=== PATIENT | female | born 1930 | race Caucasian/White ===

== ENCOUNTER 2016-12-20 09:51 | Observation (INO) | payer MEDICARE, OTHER ==
[~2016-12-20] VITALS: Ht 160 cm; Wt 64.0 kg
[~2016-12-20 09:51] MED LIST: AMLO-39 PO; ASPI81TA3 PO; ATEN50TA PO; ATOR20TA65 PO; ESTR42.52 VG; OMEP40CA36 PO; RANI150T11 PO
[2016-12-20] MEDS ORDERED: HYDROmorphone 0.5 mg/0.5 mL iSecure Syringe IVPUSH ONE (10:20)
[2016-12-20 10:21] VITALS: BP 183/69; PULSE 78; RESP 17; O2SAT 100
[2016-12-20] MEDS ORDERED: 0.9% Sodium Chloride 1,000 ML IV ONE (10:53)
[2016-12-20] MEDS ORDERED: Ondansetron 2 mg/mL 2 mL Inj IVPUSH ONE (10:55)
--- NOTE | 2016-12-20 11:01 | ED.REPORT ---
HPI-Headache Date of Service Dec 20, 2016 ED Provider: Jag Gavin MD The patient is an 86 year old female with a medical history including hypertension, migraines, CVA, and GERD who presents to the ED via EMS with a headache onset last night, worsening this morning. Associated symptoms include nausea, vomiting, and transient left arm numbness. The patient took ASA at onset , with no relief. Her symptoms are similar to previous migraines. She denies focal weakness or other symptoms. EMS found the patient with a heart rate of 98 and a BP of 192/90. She was given Zofran 4mg en route. The patient presents awake and oriented but she is a poor historian and only intermittently answers questions; unclear exact time of onset 2/ patient story changing while talking to her. The most recent time of onset was at 3am, though at other times she'll say it started yesterday. Also unclear whether or not sudden or gradual in onset Nursing Notes Stated Complaint: HEADACHE/VOMITING Chief Complaint: Headache Nursing Notes Reviewed: Yes Allergies: Coded Allergies: Penicillins (Verified Allergy, Severe, 12/20/16) enalapril (Verified Allergy, Severe, 12/20/16) DAVID Inhibitors (Verified Allergy, Unknown, 12/20/16) Scheduled Amlodipine (Norvasc) 5 Mg Tablet 10 MG PO DAILY Aspirin Chew (Aspirin Chew) 81 Mg Tablet 324 MG PO DAILY Atenolol (Atenolol) 50 Mg Tablet 50 MG PO DAILY Atorvastatin Calcium (Atorvastatin Calcium) 40 Mg Tablet 40 MG PO DAILY Chlorthalidone (Chlorthalidone) 25 Mg Tablet 12.5 MG PO DAILY Cholecalciferol (Vitamin D3) (Vitamin D3) 5,000 Unit Capsule 5,000 UNIT PO DAILY Estradiol (Estrace) 42.5 Gm Cream.appl 1 G VG WEEKLY Magnesium Oxide (Mag-Oxide) 400 Mg Tablet 400 MG PO DAILY Omeprazole (Omeprazole) 20 Mg Capsule.dr 20 MG PO BID Potassium Chloride (Potassium Chloride) 8 Meq Capsule.er 8 MEQ PO DAILY TAKE WITH FOOD General Time Seen by MD: 10:17 Chief Complaint Headache Hx Obtained From: Patient, EMS Unable to Obtain Hx: Patient condition, Mental status Arrived By: Ambulance Onset Occurred: 5 - 8 hours ago Symptom Duration: Since onset Pertinent Negative: Relieved by nothing Related History: Reports: Headache, migraine hx, Hypertension Recent Healthcare: No recent doctor visit Similar Sx Previous: Yes Past Medical History Past Medical History Hypertension. GERD Remote history of treatment with H pylori eradication therapy. 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 Mild acute renal failure. Migrainous headaches. Reports: GERD, Hypertension Past Surgical History None reported Smoking History Never Smoker Social History Alcohol Use: Denies alcohol use Drug Use: Denies drug use Other Social History: Good social support, Lives with children Ambulatory Status Independent Review of Systems Unable to Obtain ROS Patient condition, Mental status Physical Exam Initial Vital Signs Vital Signs (First) Date Time Temp Pulse Resp B/P Pulse Ox O2 Delivery O2 Flow Rate FiO2 12/20/16 10:21 37.5 78 17 183/69 100 Room Air Initial VS: Reviewed ENT: Mucous membranes moist Respiratory: Breath sounds normal, Clear to auscultation, No respiratory distress Cardiovascular: Regular rate & rhythm, Heart sounds normal Abdomen / GI: Soft, Non-tender Skin: Warm, Dry, No cyanosis General/Constitutional: Awake, Alert Slow to answer questions Head / Eyes: Atraumatic, Normocephalic, PERRL (Pupils 3mm bilaterally) Neck: Supple, Full range of motion Neurologic: Oriented X3 Speech: Positive: Slow Focal Weakness: Negative: Lower extremity bilat, Upper extremity bilat Good strength in lower extremities Unable to cooperate fully with neuro exam Abdomen: Soft Interpretation & Diagnostics URINE DIPSTICK: Bedside Urine Specific [place] * 1.000 Bedside Urine pH * 8 Bedside Urine Leukocyte Esterase * Negative Bedside Urine Nitrite * Negative Bedside Urine Protein * Trace Bedside Urine Glucose * 100mg/dl Bedside Urine Ketones * ++ Moderate Bedside Urine Urobilinogen * Normal Bedside Urine Bilirubin * Negative Bedside Urine Occult Blood * Negative Urine to Lab * Yes Lab Results Interpretation Result Diagram: 12/21/16 0530 12/22/16 0650 Test 12/20/16 10:15 12/20/16 12:47 Prothrombin Time 10.2sec (8.1-12.5) Prothromb Time International Ratio 0.95ratio Hemoglobin A1c 6.0% (4.8-5.6) Magnesium Level 1.8mg/dL (1.6-2.6) Troponin T 0.010ug/L (0.0-0.011) Pro-B-Type Natriuretic Peptide 456.8pg/mL (0-738) Triglycerides Level 97mg/dL (0-149) Cholesterol Level 130mg/dL (100-199) LDL Cholesterol, Calculated 57.600mg/dL (0-99) VLDL Cholesterol 19.400mg/dL HDL Cholesterol 53mg/dL (>39) Cholesterol/HDL Ratio 2.45 (0.0-4.4) Salicylates Level 24.2ug/mL (30-250) Acetaminophen Level < 15.0ug/mL Rx (10-25) Urine Color Straw (YELLOW) Urine Appearance Hazy (CLEAR,HAZY) Urine pH 8.0 (5.0-8.0) Urine Specific [place] 1.015 (1.003-1.035) Urine Protein Negativemg/dL (NEG,TRACE) Urine Glucose (UA) 100mg/dL (NEGATIVE) Urine Ketones Negativemg/dL (NEGATIVE) Urine Occult Blood Negative (NEGATIVE) Urine Nitrite Negative (NEGATIVE) Urine Bilirubin Negative (NEGATIVE) Urine Urobilinogen Normalmg/dL (NORMAL) Urine Leukocyte Esterase Negative (NEGATIVE) Urine RBC 0-2/hpf (0-2) Urine WBC 0-5/hpf (0-5) Urine Epithelial Cells Occasional/hpf (NONE-MOD) Urine Crystals None seen (NONE SEEN) Urine Bacteria Moderate/hpf (NONE-FEW) Urine Hyaline Casts None/lpf (NONE) Urine Granular Casts None seen (NONE SEEN) Urine Waxy Casts None seen (NONE SEEN) Urine Red Blood Cell Casts None seen (NONE SEEN) Urine White Blood Cell Casts None seen (NONE SEEN) Urine Mucus None seen (None Seen) Urine Trichomonas None seen (NONE SEEN) Urine Yeast None (NONE SEEN) Urinalysis Comment None Urine Culture Reflexed Indicated ECG Interpretation ECG Interpretation: Sinus rhythm rate 72 Atrial premature complexes Anterior infarct, old Nonspecific T abnormalities, lateral leads Time: 11:09 Interpreted by: ED physician X-Ray Chest Interpretation Chest Xray Interpretation: IMPRESSION: Increased right basilar streaky opacity. This could be related to developing pneumonia and/or atelectasis. Dictated by: Skylar Lazaro M.D. on 12/20/2016 at 10:34 View: Portable, 1 view Interpretation / Wet Read by: Interpret - Radiologist CT Head Interpretation IMPRESSION: Stable appearance of old stroke with encephalomalacia right parietal lobe from comparison head CT in May of 2015, no acute disease. No intracranial hemorrhage found nor is there evidence of sinusitis. Dictated by: Chad Peraza M.D. on 12/20/2016 at 11:03 Study: Head CT no contrast Interpretation / Wet Read by: Interpret - Radiologist Re-Eval/Medical Decision Med Decision/Clinical Course In summary, 86F w/ hx of CVA p/w headache and vomiting with an unknown time of onset, at latest starting at approx 0300. Obvious concern for acute intracranial bleed or CVA, however initial noncon head CT neg. Inconsistent neuro exam - initially not following commands with her L arm, however when asked again she had a normal exam. W/u for infectious cause pending - doesn't seem c/w current presentation - no fever, no neck stiffness or meningismus, described as similar to prev migraines, etc. Discussed w/ family and hospitalist. Will admit for MRI, neurology eval, further w/u and mgmt. Source of Hx: Old records Re-Evaluation/Progress : Time of Eval: 12:32 )( Patient Status: Condition improved Re-Evaluation/Progress Note: Patient rechecked. On reexam she has good motor strength in bilateral upper extremities. Discussed patient's case with her family. Discussed with patient and family CT, x-ray, and lab results, diagnosis, and plan for admission. Patient agrees with plan for care and all questions were addressed. Consultation : Referral / Consult Name: Kavitha Jacobsen DO Consulted With: Hospitalist Call Returned at: 13:27 Content Checker: Agrees with eval, Agrees with plan, Accepts admit Counseled Regarding: Diagnosis, Lab results, Need for admission Discharge & Departure Impression: Primary Impression: Intractable headache Headache type: unspecified Headache chronicity pattern: acute headache Qualified Code: R51 - Headache Disposition: ADMITTED TO HOSPITAL Discharge Condition All VS Reviewed: Yes Condition: Improved Referrals: Hansel Reid MD (PCP) Scribe Attestation Portions of this note were transcribed by Miriam Whitman. I, Dr. Gavin, personally performed the history, physical exam, and medical decision-making; I reviewed and confirmed the accuracy of the information in the transcribed note. Signed by: Lia Tamayo, 12/20/2016, 16:50 copies to: Hansel Reid MD, William B MD Dec 20, 2016 11:01 MIRIAM WHITMAN Dec 20, 2016 11:23 None seen (NONE SEEN) Urine Mucus None seen (None Seen) Urine Trichomonas None seen (NONE SEEN) Urine Yeast None (NONE SEEN) Urinalysis Comment None Urine Culture Reflexed Indicated ECG Interpretation ECG Interpretation: Sinus rhythm rate 72 Atrial premature complexes Anterior infarct, old Nonspecific T abnormalities, lateral leads Time: 11:09 Interpreted by: ED physician X-Ray Chest Interpretation Chest Xray Interpretation: IMPRESSION: Increased right basilar streaky opacity. This could be related to developing pneumonia and/or atelectasis. Dictated by: Skylar Lazaro M.D. on 12/20/2016 at 10:34 View: Portable, 1 view Interpretation / Wet Read by: Interpret - Radiologist CT Head Interpretation IMPRESSION: Stable appearance of old stroke with encephalomalacia right parietal lobe from comparison head CT in May of 2015, no acute disease. No intracranial hemorrhage found nor is there evidence of sinusitis. Dictated by: Chad Peraza M.D. on 12/20/2016 at 11:03 Study: Head CT no contrast Interpretation / Wet Read by: Interpret - Radiologist Re-Eval/Medical Decision Source of Hx: Old records Re-Evaluation/Progress : Time of Eval: 12:32 )( Patient Status: Condition improved Re-Evaluation/Progress Note: Patient rechecked. On reexam she has good motor strength in bilateral upper extremities. Discussed patient's case with her family. Discussed with patient and family CT, x-ray, and lab results, diagnosis, and plan for admission. Patient agrees with plan for care and all questions were addressed. Consultation : Referral / Consult Name: Kavitha Jacobsen DO Consulted With: Hospitalist Call Returned at: 13:27 Content Checker: Agrees with eval, Agrees with plan, Accepts admit Counseled Regarding: Diagnosis, Lab results, Need for admission Discharge & Departure Impression: Primary Impression: Intractable headache Headache type: unspecified Headache chronicity pattern: acute headache Qualified Code: R51 - Headache Disposition: ADMITTED TO HOSPITAL Discharge Condition All VS Reviewed: Yes Condition: Improved Referrals: Hansel Reid MD (PCP) Lia Attestation Portions of this note were transcribed by Miriam Whitman. I, Dr. Gavin, personally performed the history, physical exam, and medical decision-making; I reviewed and confirmed the accuracy of the information in the transcribed note. Signed by: Lia Tamayo, 12/20/2016, 16:50 copies to: Hansel Reid MD, William B MD Dec 20, 2016 11:01 MIRIAM WHITMAN Dec 20, 2016 11:23
[2016-12-20 11:04] VITALS: BP 204/73; PULSE 78; RESP 14; O2SAT 98
--- NOTE | 2016-12-20 11:06 | DRSVH ---
PROCEDURE: CT BRAIN WITHOUT CONTRAST ([id number]) INDICATIONS: worst headache of life TECHNIQUE: Noncontrast 4.5 mm thick angled axial sections acquired from the foramen magnum to the vertex, with c oronal reformats. COMPARISON: [facility], CT, CT BRAIN WO CON, 05/25/2015, 7:49. FINDINGS: Image quality: Excellent. CSF spaces: Basal cisterns are patent. No extra-axial fluid collections. The ventricles are symmet rudy in size and shape. Brain: No intracranial bleeds or masses. There is cerebral volume loss for age, with resultant vent ricular and sulcal prominence. There are periventricular and deep white matter chronic small vessel ischemic changes, and stable appearance of an area of encephalomalacia at the right parietal lobe, re presenting an old stroke also present in May 2015. There is intracranial internal carotid arter y atherosclerosis. Skull and face: Calvarium and visualized facial bones appear intact, without suspicious lesions. Sinuses: Visualized sinuses and mastoids are clear. IMPRESSION: Stable appearance of old stroke with encephalomalacia right parietal lobe from comparison head CT in May of 2015, no acute disease. No intracranial hemorrhage found nor is there eviden ce of sinusitis. Dictated by: Chad Peraza M.D. on 12/20/2016 at 11:03 Approved by: Chad Peraza M.D. on 12/20/2016 at 11:04
[2016-12-20 11:21] LABS: BASOPHILS % (AUTO) 0.3 % (0-3); EOSINOPHILS % (AUTO) 0.1 % (0-5); Mean Corpuscular Hemoglobin 31.1 pg (27.0-35.0); Mean Corpuscular Volume 90.5 fL (81-100); NEUTROPHILS % (AUTO) 85.1 % (40-74); Platelet Count 198 bil/L (150-400)
[2016-12-20 11:23] LABS: INR 0.95 ratio
[2016-12-20 11:31] LABS: TROPONIN T 0.01 ug/L (0.0-0.011)
--- NOTE | 2016-12-20 11:36 | DRSVH ---
PROCEDURE: X-RAY CHEST ONE VIEW, PORTABLE ([id number]) INDICATIONS: headache TECHNIQUE: One view of the chest was acquired. COMPARISON: [facility], CR, XR CHEST 1VW (PORTABLE), 05/23/2015, 9:01. FINDINGS: Surgical changes and devices: None. Lungs and pleura: There is a slight appearance of increased streaky opacity within the right base. Mediastinum: Mediastinal contours appear normal. Heart size is normal. Bones and chest wall: No suspicious bony lesions. Overlying soft tissues appear unremarkable. IMPRESSION: Increased right basilar streaky opacity. This could be related to developing pneumonia an d/or atelectasis. Dictated by: Skylar Lazaro M.D. on 12/20/2016 at 10:34 Approved by: Skylar Lazaro M.D. on 12/20/2016 at 10:35
[2016-12-20] MEDS ORDERED: Labetalol 5 mg/mL 4 mL Inj IVPUSH ONE (12:25)
[2016-12-20 13:01] LABS: APPEARANCE,URINE HAZY (CLEAR,HAZY); COLOR,URINE STRAW (YELLOW); OCCULT BLOOD,URINE NEGATIVE (NEGATIVE); UROBILINOGEN,URINE NORMAL (NORMAL)
[2016-12-20] MEDS ORDERED: ATOR40TA69 PO (13:30)
[2016-12-20] MEDS ORDERED: CHOL5000 PO (13:45)
[2016-12-20 13:51] VITALS: BP 163/72; PULSE 78; RESP 19; O2SAT 98
[2016-12-20] MEDS ORDERED: 0.9% Sodium Chloride 1,000 ML IV SCH (14:26)
[2016-12-20] MEDS ORDERED: Alum-Mag Hydrox-Simeth 30 mL Suspension PO PRN (14:30)
[2016-12-20] MEDS ORDERED: Polyethylene Glycol (PEG) 17 Gm Powder PO PRN (14:30)
[2016-12-20] MEDS ORDERED: Ondansetron 2 mg/mL 2 mL Inj IVPUSH PRN (14:30)
[2016-12-20] MEDS ORDERED: Labetalol 5 mg/mL 4 mL Inj IVPUSH PRN (14:35)
[2016-12-20] MEDS ORDERED: D5 0.45% NaCl + KCl 20 mEq/L 1,000 ML IV SCH (14:55)
--- NOTE | 2016-12-20 14:58 | PCM.HPMED ---
Subjective Date of Service Dec 20, 2016 Primary Provider: Admitting Physician: Kavitha Jacobsen DO Primary Care Physician: Hansel Reid MD Attending Physician: Kavitha Jacobsen DO Admit Status: From the Emergency Department Chief Complaint: Nausea or vomiting, altered mental status, headaches History of Present Illness: This is a 86-year-old white female with past medical history of a prior CVA/ right middle ischemic infarct, hypertension, GERD, mitral regurgitation, urinary incontinence, dysphagia, or immune hepatitis is presenting to the ER via ambulance due to concern for altered mental status, headaches, nausea vomiting. At the time of this interview no family was present, and patient appears very sleepy, disoriented, and only following commands intermittently. She is responsive to pain, sternal rub, and nailbed pressure. She opened her eyes, she is tracking but closes eyes when light is shown. She did indicate that she had a headache. This is a change in her status per ER staff, she was better earlier in the day. I called son Mr. Joselo Ac over the phone, discussed what is noticed with his mother, and Mr. Ac has asked for me to proceed with MRI of brain to rule out stroke. He also wants her to be full code at this time. Mr. Joselo Ac is also patient's power of county attorney. Her son states that his sister, who lives with his mother has not noticed any abnormalities until this a.m. In the ER patient was noted to be hypertensive upon arrival blood pressure is 183/69, 204/73. Labetalol 20 mg IV brought them down to the SBP of 160. Patient was given Zofran, IV fluids. EKG showed normal sinus rhythm at 72, nonspecific T-wave abnormalities. CT of head without only showed old stroke from May 2015, no acute hemorrhage was found. Her lab work was fairly unremarkable with the exception of our closet which is elevated at 172, troponins less than 0.02. UA showed moderate bacteriuria. Patient is admitted to the red team for stroke rule out. Review And records revealed most of her past medical history as she was unable to give me much information during my first longest visit. It appears that she sees Dr. woodward for neurology, I have promptly contacted him and gave him information about Mrs. Ac's admission to the hospital. It appears that Dr. woodward was seeing the patient for severe migraines. Review of records also showed that patient had a US echo on 06/04 that showed mild/moderate mild mitral regurgitation, increased CBD of mitral regurgitation. Upon a later visit to her room on O[facility], patient did follow commands, much more oriented, conversing normally for the most part even gave some more history, prior to departing to go to the bathroom. I have discussed this change in status once again with his son Mr. Joselo Ac and also updated them of her MRI findings. Review of Systems: Time when I met with patient, she was unable to provide review of systems as he was disoriented, and only intermittently responsive. She did indicate that she was having a bad headache. However on my next visit, she did tell me her headache was better, nausea is better. But she would not answer any of my other questions, left the room to go to bathroom with the help of staff. Allergies Coded Allergies: Penicillins (Verified Allergy, Severe, 12/20/16) enalapril (Verified Allergy, Severe, 12/20/16) DAVID Inhibitors (Verified Allergy, Unknown, 12/20/16) Home Medications Home medications include amlodipine, atenolol, atorvastatin, study or cream, omeprazole and ranitidine PMH CVA with acute right middle cerebral artery ischemic infarct, or immune hepatitis, dysphagia, GERD, hypertension, mitral regurgitation, urinary incontinence, chronic migraines Surgical History Bladder repair Family History Brother with diabetes mellitus to, father with CAD, grandmother with diabetes mellitus Son Had a Stroke Mother Had Hypertension, Macular Degeneration Sister. With Heart Disease Social History Hx Alcohol Use: No Hx Substance Use: No Hx Tobacco Use: No Smoking Status: Never Smoker Living Arrangement: with Family (lives with a daughter) Exam Vital Signs Vital Sign - Last Date Time Temp Pulse Resp B/P Pulse Ox O2 Delivery O2 Flow Rate FiO2 12/20/16 13:51 36.8 78 19 163/72 98 Room Air Exam General: not oriented to date , time and person. Closed the left eye but says she can see the examiner. Inytermittently follwoing commands, falling asleep. responds to pain, withdraws to babinski could not elciti patellar, achilles equal and symmetric. Kept closing eyes shut for light reactivity. Says she can detect sensation on the left side ok mitral regurgitation abd soft, nt Lungs Clear anteriorly Lab and Diagnostics Result Diagram: 12/20/16 1015 12/20/16 1015 X-Rays, CTs and MRIs PROCEDURE: MRI STROKE PROTOCOL ([id number]) Pre- and post-contrast brain MRI, non-contrast brain MR angiogram, pre- and postcontrast neck MR angiogram INDICATIONS: CONFUSION,EVALUATE FOR STROKE IMPRESSION: BRAIN MRI: 1. No acute intracranial abnormalities. 2. 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 3. Cerebral volume loss and chronic microvascular ischemic changes. BRAIN MR ANGIOGRAM: 1. Moderate stenosis in the distal M2 segment of the right middle cerebral artery. 2. origin of right posterior cerebral artery. NECK MR ANGIOGRAM: 1. Sub-optimal examination due to motion artifacts. 2. No high-grade stenosis in carotid arteries visualized. 2. Suboptimal visualization of the origin of the right vertebral artery. 3. 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 The estimate of stenosis included in the report of the imaging study was calculated using the NASCET method Dictated by: Jayjay Khan M.D. on 12/20/2016 at 17:24 Approved by: Jayjay Khan M.D. on 12/20/2016 at 17:36 PROCEDURE: US BILATERAL DUPLEX DOPPLER IMAGING OF THE CAROTIDS ([id number]) INDICATIONS: stroke r/oIMPRESSION: Less than 50% stenosis within the proximal internal carotid artery on the left, 50-69% stenosis within the proximal internal carotid artery on the right, normal vertebral arterial flow bilaterally. Dictated by: Chad Peraza M.D. on 12/20/2016 at 19:13 Approved by: Chad Peraza M.D. on 12/20/2016 at 19:15 PROCEDURE: X-RAY CHEST ONE VIEW, PORTABLE ([id number]) INDICATIONS: headache IMPRESSION: Increased right basilar streaky opacity. This could be related to developing pneumonia and/or atelectasis. Dictated by: Skylar Lazaro M.D. on 12/20/2016 at 10:34 Approved by: Skylar Lazaro M.D. on 12/20/2016 at 10:35 PROCEDURE: CT BRAIN WITHOUT CONTRAST ([id number]) INDICATIONS: worst headache of life IMPRESSION: Stable appearance of old stroke with encephalomalacia right parietal lobe from comparison head CT in May of 2015, no acute disease. No intracranial hemorrhage found nor is there evidence of sinusitis. Dictated by: Chad Peraza M.D. on 12/20/2016 at 11:03 Approved by: Chad Peraza M.D. on 12/20/2016 at 11:04 Assessment & Plan This is a [age]-year-old white female with past medical history of hypertension, CVA, complex migraines and mitral regurgitation that is thought to be severe is presenting today for headaches, nausea vomiting and altered mental status. Assessment #1 altered mental status, present on admission: Patient status has much improved, MRA showed no concern for acute stroke, CT without prior to that showed only the old stroke and no hemorrhage. This may be a TIA versus complex migraine -- MR stroke protocol is ordered: Ruled out stroke -- Called patient's neurologist Dr. Morley and discussed the case with him. He is aware. He feels that patient's lipid medications can be restarted tomorrow a.m. -- Because of stroke rule out patient has when necessary labetalol orders, with permissive hypertension -- Every 4 neuro checks -- Telemonitoring -- Patient reportedly took aspirin in the a.m. for headaches, thus aspirin was not administered in the ER -- She says that she takes a baby aspirin every day, we will give her clopidogrel. -- Lipid panel, A1c are ordered for tomorrow a.m. -- Carotid ultrasound ordered -- We will consider an echocardiogram as it has been more than a year since her last one -- I have personally reviewed the EKG, CT chest x-ray, findings of CT scan and MRI as well as carotid ultrasound. Assessment #2 nausea vomiting: -- She is currently on famotidine 20 mg IV twice a day for GI prophylaxis -- Over the phone conversation son says that she has severe GERD, we will consider changing her over to Protonix IV 40 daily before meals in the a.m. -- Continue to monitor Assessment #3 hypertension, chronic: -- We will restart patient's a.m. home medications the stroke is ruled out Assessment #4 hyperlipidemia, chronic: -- Atorvastatin 40 mg daily at bedtime Assessment #5 severe mitral regurgitation, chronic -- We will order echo tomorrow a.m. Disposition: The patient's symptoms to resolve, she can likely be discharged with home health and physical therapy on clopidogrel. We will await further recommendations from Dr. woodward. Pain Evaluation: Adequate Pain Control GI Prophylaxis: H2 wilbert Resuscitation Status: CPR: Attempt Resuscitation (she is a full code per son Srinath Ac) Time spent 45 minutes Kavitha Jacobsen DO Dec 20, 2016 14:57
[2016-12-20 15:19] LABS: Magnesium 1.8 mg/dL (1.6-2.6)
--- NOTE | 2016-12-20 16:06 | NUR ---
CLIENT SERVICES SPECIALIST order received. Pt demonstrated difficulty following directions for repositioning. When HOB was elevated, pt yelled in pain, eructed, and then began coughing. Pt repeatedly asked for TUMS and reported pain. RN notified. Pt is not appropriate for PO trials at this time. CLIENT SERVICES SPECIALIST will evaluate tomorrow.
--- NOTE | 2016-12-20 16:30 | NUR ---
Arrival Pt. arrived from the ED to room 1019 O[facility]. Pt. arrived somewhat sleepy but easily arouses and was able to follow commands. Sliding board was used to move Pt. into the hospital bed due to general weakness. Pt. denied CP or SOB at this time but was requesting Tums due to her GERD as she herself stated. Pt. was then taken to MRI procedure.
[2016-12-20 17:46] VITALS: BP 162/76; PULSE 62; RESP 20; O2SAT 92
[2016-12-20 18:01] VITALS: PULSE 80
--- NOTE | 2016-12-20 18:38 | DRSVH ---
PROCEDURE: MRI STROKE PROTOCOL ([id number]) Pre- and post-contrast brain MRI, non-contrast brain MR angiogram, pre- and postcontrast neck MR mee ogram INDICATIONS: CONFUSION,EVALUATE FOR STROKE TECHNIQUE: Brain: Noncontrast axial T1 spin echo, axial T2 fast spin echo, sagittal and axial FLAIR, coronal T2 fast spin echo, axial gradient echo, axial diffusion and ADC through the brain. After the administr ation of contrast, axial 3D VIBE of the cranial vasculature and brain. Brain MRA: Non-contrast 3-D time of flight MR angiogram, with multiple ifsigrk-snuqwdcfy-jlvisblscf (MIP) reformats performed. Neck MRA: Axial and sagittal TruFISP through the neck. Coronal dynamic MR angiogram during administ ration of contrast in the arterial and venous phases, with 3-dimenstional gintukw-mpzwclwmj-yuemoemky n (MIP) reformats constructed from subtraction images. COMPARISON: [facility], MR, MR STROKE PROTOCOL, 05/23/2015, 22:08. [facility], CT, CT BRAIN WO CON, 05/25/2015, 7:49. [facility], CT, CT BRAIN WO CON, 12/20/2016, 1 0:51. [facility], MR, MR STROKE PROTOCOL, 11/20/2015, 10:14. FINDINGS: Image quality: Motion artifacts on MR angiogram images. BRAIN: CSF spaces: Ventricles are normal in size and shape. Basal cisterns are patent. No extra-axial flu id collections. Brain: There is a moderate sized old infarct in the right parietal lobe with gliosis and encephaloma lacia. No intracranial bleeds or mass effects. There is moderate to severe cerebral volume loss. Mod erate periventricular matter chronic small vessel ischemic changes are present. Diffusion weighted im ages show no acute ischemic insults. Brainstem appears normal. Normal intravascular flow voids are present. No abnormal intracranial enhancement. Skull and face: Calvarial marrow signal is normal. Orbits appear normal. Sinuses: Sinuses and mastoids are clear. BRAIN MR ANGIOGRAM: Anterior circulation: Intracranial internal carotid arteries are normal in size and enhancement. Th e flow within the paired anterior cerebral arteries is normal and symmetric. The flow within the mid dle cerebral arteries is normal and symmetric. The anterior communicating artery is seen. No stenos es, occlusions, or aneurysms. Posterior circulation: The visualized portions of the vertebral arteries demonstrate normal caliber, and join to form a normal appearing basilar artery. The flow within the posterior cerebral arteries is normal and symmetric. No stenoses, occlusions, or aneurysms. NECK MR ANGIOGRAM: Carotids: Great vessels demonstrate a conventional anatomy as they arise from the aortic arch. The origins of the common carotid arteries appear patent. The calibers and courses of both common caroti d arteries are normal. The bifurcation regions appear normal bilaterally. The internal carotid vicente ghulam demonstrate normal course and caliber. Posterior circulation: The origins of the vertebral arteries appear patent. More superior portions of both vertebral arteries demonstrate normal course and caliber, and join to form a normal appearing basilar artery. Miscellaneous: Subclavian arteries appear patent. Pre-contrast images through the neck show no soft tissue abnormalities. IMPRESSION: BRAIN MRI: 1. No acute intracranial abnormalities. 2. 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 3. Cerebral volume loss and chronic microvascular ischemic changes. BRAIN MR ANGIOGRAM: 1. Moderate stenosis in the distal M2 segment of the right middle cerebral artery. 2. origin of right posterior cerebral artery. NECK MR ANGIOGRAM: 1. Sub-optimal examination due to motion artifacts. 2. No high-grade stenosis in carotid arteries visualized. 2. Suboptimal visualization of the origin of the right vertebral artery. 3. 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 The estimate of stenosis included in the report of the imaging study was calculated using the NASCET method Dictated by: Jayjay Khan M.D. on 12/20/2016 at 17:24 Approved by: Jayjay Khan M.D. on 12/20/2016 at 17:36
[2016-12-20] MEDS: Heparin 5,000 Unit/mL Inj SUBQ SCH (18:39)
--- NOTE | 2016-12-20 19:14 | NUR ---
Neuro Assessment Pt. follows command appropriately, A&Ox3 and able to POLANCO. Pt. states a headache of 5/10 but admits it has decreased and is tolerable at this time.
--- NOTE | 2016-12-20 19:17 | DRSVH ---
PROCEDURE: US BILATERAL DUPLEX DOPPLER IMAGING OF THE CAROTIDS ([id number]) INDICATIONS: stroke r/o TECHNIQUE: Color and pulse Doppler interrogation was performed of both carotid systems, with image documentation and velocity measurements. COMPARISON: [facility], MR, MR STROKE PROTOCOL, 12/20/2016, 16:47. [facility] l, CT, CT BRAIN WO CON, 12/20/2016, 10:51. FINDINGS: All stenosis calculations are based on NASCET criteria. Right side: Brachial blood pressure: 167/71 mm Hg. Common carotid artery peak systolic velocity: 85 cm/sec. Internal carotid artery peak systolic velocity: 136 cm/sec. Internal carotid artery end diastolic velocity: 21 cm/sec. External carotid artery peak systolic velocity: 123 cm/sec. ICA/CCA peak systolic ratio: 1.6. Richardson scale imaging description: Mild soft plaque Percent internal carotid artery stenosis: A 50-69% stenosis within the proximal right internal carot id artery. Vertebral artery: Flow direction is antegrade. Left side: Brachial blood pressure: 183/69 mm Hg. Common carotid artery peak systolic velocity: 74 cm/sec. Internal carotid artery peak systolic velocity: 93 cm/sec. Internal carotid artery end diastolic velocity: 14 cm/sec. External carotid artery peak systolic velocity: 139 cm/sec. ICA/CCA peak systolic ratio: 1.3. Richardson scale imaging description: Mild soft plaque Percent internal carotid artery stenosis: Less than 50% stenosis. Vertebral artery: Flow direction is antegrade. IMPRESSION: Less than 50% stenosis within the proximal internal carotid artery on the left, 50-69% s tenosis within the proximal internal carotid artery on the right, normal vertebral arterial flow bila terally. Dictated by: Chad Peraza M.D. on 12/20/2016 at 19:13 Approved by: Chad Peraza M.D. on 12/20/2016 at 19:15
[2016-12-20] MEDS: 0.9% Sodium Chloride 1,000 ML IV SCH (19:40)
[2016-12-20 20:45] VITALS: BP 134/61; PULSE 76; RESP 16; O2SAT 97
[2016-12-20] MEDS ORDERED: 0.9% Sodium Chloride 100 ML ONE (21:12)
[2016-12-20] MEDS: Famotidine Inj 20 MG in IV Premix 1 EACH IV SCH (21:18)
--- NOTE | 2016-12-20 22:07 | PCM.ADCARE ---
Advance Care Planning Note Purpose of Encounter: To determine goals of care, code status Parties in Attendance: Power of document review attorney patient's son Srinath Ac, and Dr. Jacobsen Decisional Capacity: Patient's diffusion capacity was poor at the time of the first interview Subjective: Mr. Srinath Ac stated over the phone that he likes to be proactive about things, and he wants everything done for his mother Objective: Patient was very disoriented only responding intermittently during the initial interview. thus, she was not seen capable of making decisions on her CODE STATUS. Goals of Care Determinations: Patient's son who is her POA wants it everything that is possible done to investigate, and to revive his mother Plan: Patient will be made full code CODE STATUS: Full code Time Spent Adv.Care Plannin minutes Adv. Care Plan Documenation: Patient is full code with son Srinath Ac as alternate decision-maker documented in the admission summary Kavitha Jacobsen DO Dec 20, 2016 22:07
[2016-12-21 00:35] VITALS: BP 160/78; PULSE 79; RESP 16; O2SAT 96
[2016-12-21] MEDS: Heparin 5,000 Unit/mL Inj SUBQ SCH ×3 (02:10→17:08)
--- NOTE | 2016-12-21 02:26 | NUR ---
Neuros Pt A/O x3, making needs known. Pt is sleeping this shift, c/o mild, nagging headache 2-3/10, which is tolerable. Pt is easy to rouse, neuro's intact. Follows commands and no deficits noted. Care continues
[2016-12-21 05:37] VITALS: PULSE 75
[2016-12-21] MEDS: 0.9% Sodium Chloride 1,000 ML IV SCH ×3 (05:40→21:14)
[2016-12-21 05:50] VITALS: BP 146/67; PULSE 53; RESP 16; O2SAT 98
[2016-12-21 06:12] LABS: BASOPHILS % (AUTO) 0.1 % (0-3); EOSINOPHILS % (AUTO) 0.2 % (0-5); MONOCYTES % (AUTO) 9.1 % (4-12); Mean Corpuscular Volume 91.5 fL (81-100); NEUTROPHILS % (AUTO) 68.9 % (40-74); Platelet Count 158 bil/L (150-400)
[2016-12-21] MEDS: Famotidine Inj 20 MG in IV Premix 1 EACH IV SCH ×2 (08:14→21:14)
[2016-12-21 10:14] VITALS: PULSE 64
--- NOTE | 2016-12-21 11:41 | NUR ---
Case Management: ARSALAN given and explained to pt. Deirdre TAVERASRN
--- NOTE | 2016-12-21 14:51 | NUR ---
Evaluation completed. Please go to "Notes" then click on "Assessments and Notes" (bottom left corner of screen). Then select appropriate discipline tab on top of screen.
--- NOTE | 2016-12-21 15:08 | NUR ---
Social Work: Initial Assessment D: EMR reviewed. Pt is a 86 y/o female admitted for intractable headache per H&P. PETE met with pt, son/DPOA, and [id number] at bedside to conduct initial assessment. Pt was alert and oriented x3. SW explained role and wrote phone number on white board. PETE confirmed pt has completed DPOA/advanced directive ppw and encouraged pt to provide a copy to the hospital. Pt's primary contact is her son/DPOA, Srinath Ac, ([phone]) and can be contacted for discharge planning. Pt's insurance is Medicare and PCP is Hansel Reid MD. Pt has no Hx of HH or SNF. Pt has no LTC insurance or VA benefits. Pt is independent with ADLs. Pt does not use or own any DME. Pt drives. Pt is independent at baseline. Pt lives at home alone in a single-story house with one step to enter in [facility]. Pt's son asked about HH services for medication management and vitals after discharge. PETE determine pt is homebound and explained pt my qualify if MD sees HH is medically necessary. SW will await MD orders to determine HH. SW provided choice list at pt's request (so they could research HH agencies if MD does believe HH is medically necessary). PETE confirmed pt's son will provide transport home via POV when pt is medically stable. SW will follow to R/O HH. A: Pt who is independent at baseline. P: SW to follow to R/O HH RN. Pt to transport home with son via POV when medically stable. PETE provided choice list at pt's request. PETE will determine HH need if MD deems HH RN medically necessary and places order. BEATRIZ Burgos Addendum: 12/21/16 at 1515 by REBECCA NICHOLSON Amended: Links added.
[2016-12-21 15:29] VITALS: BP 147/63; PULSE 61; RESP 18; O2SAT 98
--- NOTE | 2016-12-21 15:50 | PCM.PNMED ---
Subjective Date of Service Dec 21, 2016 Subjective Patient mental status has much improved today, family is visiting in the room and they say she is back to her baseline, she was seen ambulating in the hallways later in the day . Patient says says she is nauseated on the morning of the day she came here, she has vomited several times while the headaches are going on. She had photo/phonophobia and no fevers or abdominal pain or diarrhea. She says her right side of neck chronically hurts Exam Vital Signs Vital Sign - Last Date Time Temp Pulse Resp B/P Pulse Ox O2 Delivery O2 Flow Rate FiO2 12/21/16 05:50 37.0 53 16 146/67 98 Room Air Intake and Output 12/20/16 12/20/16 12/21/16 Cumulative From/Thru 15:00 23:00 07:00 12/20/16 11:04 - 12/21/16 06:47 Intake Total 1000 ml 1329 ml 2329 ml Output Total 100 ml 225 ml 325 ml Balance 1000 ml -100 ml 1104 ml 2004 ml Intake Oral 200 ml 200 ml IV Total 1000 ml 1129 ml 2129 ml Output Urine Total 100 ml 225 ml 325 ml # Bowel Movements 0 0 Exam Gen.: No acute distress HEENT: Right eyebrow is higher than the left slight mouth droop to the left (I do not know her baseline, family does not seem to recognize any change) Heart: 2+ systolic murmur with radiation to axilla and neck, regular rate and rhythm Lungs: Clear to auscultation or wheezes Abdomen soft nontender Extremities: Negative edema Neuro: CN II-XII grossly intact with the exception of facial droop, negative finger to nose, negative alternating hands and negative heel to toe intact. Slight instability noted with Romberg's negative for arm drift IVs and Medications Medications Reviewed: Medications were reviewed in detail Lab and Diagnostics Result Diagram: 12/21/1652912/21/16529 X-Rays, CTs and MRIs IMPRESSION: BRAIN MRI: 1. No acute intracranial abnormalities. 2. 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 3. Cerebral volume loss and chronic microvascular ischemic changes. BRAIN MR ANGIOGRAM: 1. Moderate stenosis in the distal M2 segment of the right middle cerebral artery. 2. origin of right posterior cerebral artery. NECK MR ANGIOGRAM: 1. Sub-optimal examination due to motion artifacts. 2. No high-grade stenosis in carotid arteries visualized. 2. Suboptimal visualization of the origin of the right vertebral artery. 3. 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 The estimate of stenosis included in the report of the imaging study was calculated using the NASCET method Dictated by: Jayjay Khan M.D. on 12/20/2016 at 17:24 Approved by: Jayjay Khan M.D. on 12/20/2016 at 17:36 PROCEDURE: US BILATERAL DUPLEX DOPPLER IMAGING OF THE CAROTIDS ([id number]) INDICATIONS: stroke r/o IMPRESSION: Less than 50% stenosis within the proximal internal carotid artery on the left, 50-69% stenosis within the proximal internal carotid artery on the right, normal vertebral arterial flow bilaterally. Dictated by: Chad Peraza M.D. on 12/20/2016 at 19:13 Approved by: Chad Peraza M.D. on 12/20/2016 at 19:15 PROCEDURE: X-RAY CHEST ONE VIEW, PORTABLE ([id number]) INDICATIONS: headache TECHNIQUE: One view of the chest was acquired. IMPRESSION: Increased right basilar streaky opacity. This could be related to developing pneumonia and/or atelectasis. Dictated by: Skylar Lazaro M.D. on 12/20/2016 at 10:34 Approved by: Skylar Lazaro M.D. on 12/20/2016 at 10:35 PROCEDURE: CT BRAIN WITHOUT CONTRAST ([id number]) INDICATIONS: worst headache of life IMPRESSION: Stable appearance of old stroke with encephalomalacia right parietal lobe from comparison head CT in May of 2015, no acute disease. No intracranial hemorrhage found nor is there evidence of sinusitis. Dictated by: Chad Peraza M.D. on 12/20/2016 at 11:03 Approved by: Chad Peraza M.D. on 12/20/2016 at 11:04 Assessment & Plan This is a [age]-year-old white female with past medical history of hypertension, CVA, complex migraines and mitral regurgitation that is thought to be severe is presenting today for headaches, nausea vomiting and altered mental status. Assessment #1 Complex migraine: Based on her presentation, imaging results we considered that this is a complex migraine patient suffered Patient status has much improved, MRA showed no concern for acute stroke, CT without prior to that showed only the old stroke and no hemorrhage. She has photophobia photophobia, phonophobia and nausea with the headache, according to Dr. woodward this is more effective presentation of complex migraine than a TIA. -- She says she has not been compliant with aspirin daily, we will reinforce the importance of keeping regular -- MR stroke protocol is ordered: Ruled out stroke -- Called patient's neurologist Dr. Morley and discussed the case with him. He is aware. He feels that this is more of a complex migraine based on the description I gave him. We may start her on migraine prophylaxis after further discussion. -- Lipid panel, A1c are ordered: Reviewed the results A1c 6.0, lipid panel is fairly unremarkable -- Carotid ultrasound ordered : Right carotid showed 50-69% stenosis, negative for critical stenosis. Dr. woodward feels that he can follow her as outpatient in order for the scans as needed. -- Echocardiogram is performed performed result is pending -- I have personally reviewed the EKG, CT chest x-ray, findings of CT scan and brain MRI as well as carotid ultrasound. This assessment to neck pain, chronic: -- We will order a x-ray of cervical spine Assessment #2 nausea vomiting: Resolved -- She is currently on famotidine 20 mg IV twice a day for GI prophylaxis -- son says that she has GERD, she is not complaining -- Continue to monitor Assessment #3 hypertension, chronic: -- Patient's home medications are given Assessment #4 hyperlipidemia, chronic: -- Atorvastatin 40 mg daily at bedtime Assessment #5 severe mitral regurgitation, chronic -- Cardiac echo performed result is pending Disposition: The patient's symptoms to resolve, she can likely be discharged with home health and physical therapy on aspirin. She will follow-up with Dr. woodward. Pain Evaluation: Adequate Pain Control Resuscitation Status: CPR: Attempt Resuscitation Time spent 45 min Kavitha Jacobsen DO Dec 21, 2016 10:03
--- NOTE | 2016-12-21 16:02 | DRSVH ---
PROCEDURE: X-RAY CERVICAL SPINE, 2 OR 3 VIEWS INDICATIONS: neck pain, look for osteophytes TECHNIQUE: 3 view(s) of the cervical spine were acquired. COMPARISON: None. FINDINGS: Bones: No fractures or dislocations to the top of T1 level. The lateral masses of C1 appear intact on the odontoid view. Severe multilevel degenerative disc changes are noted. Severe multilevel facet arthropathy and uncovertebral joint hypertrophy noted. C4 and C5 ankylosis noted. Soft tissues: No prevertebral soft tissue swelling. IMPRESSION: Severe multilevel degenerative disc disease, facet arthropathy and uncovertebral joint h ypertrophy. Dictated by: Sada Kamara MD, PhD on 12/21/2016 at 15:59 Approved by: Sada aKmara MD, PhD on 12/21/2016 at 16:00
--- NOTE | 2016-12-21 18:27 | NUR ---
activity Pt up 1 assist, walked in the johnson with PT and RN No neuro deficits noted, Pt stated Headache gone, up sitting in chair right now. Continuing to monitor.
--- NOTE | 2016-12-21 18:31 | DRSVH ---
[facility] [address] [place] [address] Echocardiogram Report Name: TINY MALDONADO GStudy Date : 12/21/2016 Height: 63 in Hospital Exam Location: [facility] Weight: 144 lb Gender: Female BSA: 1.7 m2 : 1930 Age: 86 yrs BP: 146/67 mmHg Reason For Study: CVA Ordering Physician: Performed By: [facility] Interpretation Summary 1. Normal left ventricular size with mild proximal septal thickening and normal systolic function with an estimated EF of 60-65% 2. Normal right ventricular size and systolic function. 3. No evidence for significant valvular pathology. 4. A patent foramen ovale is suspected Compared to the previous study, the EF is stable Procedure: A two-dimensional transthoracic echocardiogram with color flow and Doppler was performed. The study quality was technically adequate. Comparison is made with the echocardiogram of 05-24-15. The patient was in normal sinus rhythm during the exam. Left Ventricle: Proximal septal thickening is noted. The left ventricle is normal in size. The ejection fraction is estimated to be 60-65%. No focal wall motion abnormalities appreciated. Assessment of diastolic parameters indicates normal left ventricular diastolic function and normal filling pressures. Right Ventricle: The right ventricle is normal size. The right ventricular systolic function is normal. Atria: The left atrium is severely dilated. Borderline right atrial enlargement. A patent foramen ovale is present. Mitral Valve: The mitral valve leaflets appear mildly thickened, but open well. There is mild mitral regurgitation. Aortic Valve: The aortic valve opens well. The aortic valve is trileaflet. No aortic regurgitation is present. Tricuspid Valve: The tricuspid valve leaflets are thin and pliable. There is trace tricuspid regurgitation. The right ventricular systolic pressure is estimated at 43 mmHg assuming a right atrial pressure of 8 mm Hg. Pulmonic Valve: The pulmonic valve is not well visualized. There is trace pulmonic regurgitation. Great Vessels: The aortic root is normal size. The dimensions of the ascending aorta are normal. The IVC is of normal diameter and collapses less than 50% with a sniff. This suggests a right atrial pressure of 8 mm Hg. Pericardium/ Pleura There is no pericardial effusion. There is no pleural effusion. MMode/2D Measurements & Calculations LVIDd: 4.2 cm LA dimension: 4.0 cm RA long axis Ao root diam LVIDs: 1.9 cm FS: 53.5 % LA A2 area: 28.4 cm RA area Aortic Jxn: 2.8 cm IVSd: 0.96 cm LA A4 area: 23.8 cm asc Aorta Diam LVPWd: 0.65 cm LA length (vol) : 20.2 cm RA vol Ao Arch Diam (Prox LA vol: 94.2 ml : 57.4 ml Trans): 2.9 cm LA vol index RA : 34.1 mm/ RVDd major IVC diam: 2.0 cm : 5.5 cm LV goss. diameter/BSA LV sys. diameter/BSA RVD1 (basal) RVD2 (mid): 3.0 cm (cm/m^2): 2.5 (cm/m^2): 1.2 Doppler Measurements & Calculations LVOT Max Narciso MV E max narciso MV E/A: 0.72 TR max narciso : 120.3 cm/sec : 55.8 cm/sec Med Peak E' Narciso : 297.0 cm/sec MV A max narciso TR max PG : 78.0 cm/sec E/E' med: 6.5 : 35.3 mmHg MV P1/2t: 48.1 msec Lat Peak E' Narciso PA V2 max : 93.2 cm/sec E/E' lat: 9.1 PA mean PG E/e' average: 7.8 PA Accel Time : 0.18 sec MV dec time MV P1/2t max narciso LV V1 max PG PA V2 mean : 0.16 sec : 58.1 cm/sec MVA(P1/2t): 4.6 cm2 LV V1 VTI: 29.1 cm Reading Physician:06:30 PM
[2016-12-21 21:00] VITALS: BP 180/69; PULSE 55; RESP 18; O2SAT 97
[2016-12-22 00:15] VITALS: BP 170/71; PULSE 62; RESP 16; O2SAT 95
[2016-12-22] MEDS: Heparin 5,000 Unit/mL Inj SUBQ SCH ×2 (00:22→07:50)
[2016-12-22 05:00] VITALS: BP 177/77; PULSE 57; RESP 16; O2SAT 97
[2016-12-22 05:51] VITALS: PULSE 55
[2016-12-22 05:55] VITALS: PULSE 55
--- NOTE | 2016-12-22 06:10 | NUR ---
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
[2016-12-22 07:49] VITALS: BP 162/65; PULSE 68; RESP 16; O2SAT 98
[2016-12-22] MEDS: Famotidine Inj 20 MG in IV Premix 1 EACH IV SCH (07:49)
[2016-12-22 10:05] VITALS: PULSE 50
[2016-12-22] MEDS ORDERED: MAGN400T23 PO (11:01)
[2016-12-22] MEDS ORDERED: HYG25 PO (11:02)
[2016-12-22] MEDS ORDERED: POTA8CAP10 PO (11:03)
--- NOTE | 2016-12-22 11:10 | PCM.DIMED ---
Discharge Instructions Date of Service Dec 22, 2016 Dates of Hospitalization Dec 20, 2016 at 13:31 Discharge Diagnosis Discharge Diagnosis Complex Migraine, Hypertension Diet Discharge Diet: Heart Healthy, Other (soft) Activity Discharge Activity: Limited until seen by PCP (please avoid driving until seen by neurology) Call your provider Call your provider for: Fever or Chills, Shortness of breath, Bleeding, Chest pain, Vomitting, Excessive diarrhea, Weakness (unilateral), Other Patient Instructions Patient Instructions Take aspirin regularly to avoid cardiovascular events. Take magnesium and continue atenolol for migraine prevention. Continue omeprazole and Ranitidine home meds for GERD You are started on new medication chlorthalidone for HTN. Take potassium supplementation as prescribed. Follow-up plan Please see Dr. Cerda in neurology clininc in 1-2 weeks Please see Cardiology with in [facility] system or of your choice in 2 weeks Please see PCP in 2 weeks F/U BMP prior to PCP visit Kavitha Jacobsen DO Dec 22, 2016 11:10
[2016-12-22] MEDS ORDERED: OMEP20CA11 PO (11:20)
--- NOTE | 2016-12-22 11:45 | NUR ---
Social Work: Readiness for Discharge D: EMR reviewed. Pt is on day 2 of hospitalization. Per MD in AM multi-disciplinary rounds, pt will discharge today. MD requested SW consult for RN 3x/week. SW met with pt to discuss HH and provided choice list. Pt chose [facility]. SW received completed F2F from and faxed to [facility]. SW provided access to [place] to review pt's EMR. PETE spoke with Francisca from [facility] who confirmed they can open with pt for RN. PETE updated pt and family that pt will receive T/C from [facility] the day after discharge to schedule RN appointments. Pt and family agreeable to discharge plan. SW will continue to follow. A: Pt for whom RN 3x/week has been deemed medically necessary. P: Pt to discharge home with son via POV. Pt to open with [facility] for RN 3x/week. Pt and family updated and agreeable to plan. SW will continue to follow. BEATRIZ Burgos
--- NOTE | 2016-12-22 12:55 | NUR ---
DISCHARGE Patient is alert and oriented X 4. Answers questions appropriately. BUE/BLE is equal in strength. Denies pain. Tolerating liquids PO and her diet well. Denies nausea. No emesis noted. Denies SOB. Patient has been ambulating independently in the room. Gait is steady. Voiding without any problems. IV saline lock d/cd. Discharge instructions, care notes and prescription was given to the patient and she verbalized understanding. Discharged to home with her daughter and all her personal belongings. (Copy of D/C is in the chart).
--- NOTE | 2016-12-23 01:05 | PCM.DC.MED ---
Discharge Summary Date of Service Dec 22, 2016 Dates of Hospitalization Date of Hospital Admission Dec 20, 2016 at 13:31 Date of Discharge: Dec 22, 2016 Providers: Admitting Physician: Kavitha Hernandez DO Primary Care Physician: Hansel Reid MD Attending Physician: Kavitha Hernandez DO Diagnosis at Time of Discharge Diagnosis at Time of Discharge Complex Migraine, Hypertension, acute kidney injury Consultations Neurology via phone, ST, PT/OT Procedures XRay, CTs & MRIs IMPRESSION: BRAIN MRI: 1. No acute intracranial abnormalities. 2. 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 3. Cerebral volume loss and chronic microvascular ischemic changes. BRAIN MR ANGIOGRAM: 1. Moderate stenosis in the distal M2 segment of the right middle cerebral artery. 2. origin of right posterior cerebral artery. NECK MR ANGIOGRAM: 1. Sub-optimal examination due to motion artifacts. 2. No high-grade stenosis in carotid arteries visualized. 2. Suboptimal visualization of the origin of the right vertebral artery. 3. 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 The estimate of stenosis included in the report of the imaging study was calculated using the NASCET method Dictated by: Jayjay Khan M.D. on 12/20/2016 at 17:24 Approved by: Jayjay Khan M.D. on 12/20/2016 at 17:36 PROCEDURE: US BILATERAL DUPLEX DOPPLER IMAGING OF THE CAROTIDS ([id number]) INDICATIONS: stroke r/o IMPRESSION: Less than 50% stenosis within the proximal internal carotid artery on the left, 50-69% stenosis within the proximal internal carotid artery on the right, normal vertebral arterial flow bilaterally. Dictated by: Chad Peraza M.D. on 12/20/2016 at 19:13 Approved by: Chad Peraza M.D. on 12/20/2016 at 19:15 PROCEDURE: X-RAY CHEST ONE VIEW, PORTABLE ([id number]) INDICATIONS: headache TECHNIQUE: One view of the chest was acquired. IMPRESSION: Increased right basilar streaky opacity. This could be related to developing pneumonia and/or atelectasis. Dictated by: Skylar Lazaro M.D. on 12/20/2016 at 10:34 Approved by: Skylar Lazaro M.D. on 12/20/2016 at 10:35 PROCEDURE: CT BRAIN WITHOUT CONTRAST ([id number]) INDICATIONS: worst headache of life IMPRESSION: Stable appearance of old stroke with encephalomalacia right parietal lobe from comparison head CT in May of 2015, no acute disease. No intracranial hemorrhage found nor is there evidence of sinusitis. Dictated by: Chad Peraza M.D. on 12/20/2016 at 11:03 Approved by: Chad Peraza M.D. on 12/20/2016 at 11:04 PROCEDURE: X-RAY CERVICAL SPINE, 2 OR 3 VIEWS INDICATIONS: neck pain, look for osteophytes IMPRESSION: Severe multilevel degenerative disc disease, facet arthropathy and uncovertebral joint hypertrophy. Dictated by: Sada Kamraa MD, PhD on 12/21/2016 at 15:59 Approved by: Sada Kamara MD, PhD on 12/21/2016 at 16:00 Cardiac Echo Impression Echocardiogram Report Interpretation Summary 1. Normal left ventricular size with mild proximal septal thickening and normal systolic function with an estimated EF of 60-65% 2. Normal right ventricular size and systolic function. 3. No evidence for significant valvular pathology. 4. A patent foramen ovale is suspected Compared to the previous study, the EF is stable Reading Physician:06:30 PM ----- Brief History This is a 86-year-old white female with past medical history of a prior CVA/ right middle ischemic infarct, hypertension, GERD, mitral regurgitation, urinary incontinence, dysphagia, or immune hepatitis is presenting to the ER via ambulance due to concern for altered mental status, headaches, nausea vomiting. At the time of this interview no family was present, and patient appears very sleepy, disoriented, and only following commands intermittently. She is responsive to pain, sternal rub, and nailbed pressure. She opened her eyes, she is tracking but closes eyes when light is shown. She did indicate that she had a headache. This is a change in her status per ER staff, she was better earlier in the day. I called son Mr. Joselo Ac over the phone, discussed what is noticed with his mother, and Mr. Ac has asked for me to proceed with MRI of brain to rule out stroke. He also wants her to be full code at this time. Mr. Joselo Ac is also patient's power of erisa attorney. Her son states that his sister, who lives with his mother has not noticed any abnormalities until this a.m. In the ER patient was noted to be hypertensive upon arrival blood pressure is 183/69, 204/73. Labetalol 20 mg IV brought them down to the SBP of 160. Patient was given Zofran, IV fluids. EKG showed normal sinus rhythm at 72, nonspecific T-wave abnormalities. CT of head without only showed old stroke from May 2015, no acute hemorrhage was found. Her lab work was fairly unremarkable with the exception of our closet which is elevated at 172, troponins less than 0.02. UA showed moderate bacteriuria. Patient is admitted to the red team for stroke rule out. Review And records revealed most of her past medical history as she was unable to give me much information during my first longest visit. It appears that she sees Dr. woodward for neurology, I have promptly contacted him and gave him information about Mrs. Ac's admission to the hospital. It appears that Dr. woodward was seeing the patient for severe migraines. Review of records also showed that patient had a US echo on 06/04 that showed mild/moderate mild mitral regurgitation, increased CBD of mitral regurgitation. Upon a later visit to her room on , patient did follow commands, much more oriented, conversing normally for the most part even gave some more history, prior to departing to go to the bathroom. I have discussed this change in status once again with his son Mr. Joselo Ac and also updated them of her MRI findings. Hospital Course This is a [age]-year-old white female with past medical history of hypertension, CVA, complex migraines and mitral regurgitation that is thought to be severe is presenting today for headaches, nausea vomiting and altered mental status. Assessment # acute kidney injury: Thought to be prerenal secondary to nausea and dehydration -- Patient is back to baseline at the time of discharge with gentle hydration Assessment # Complex migraine: Based on her presentation, imaging results we considered that this is a complex migraine patient suffered Patient status has much improved, MRA showed no concern for acute stroke, CT without prior to that showed only the old stroke and no hemorrhage. She has photophobia photophobia, phonophobia and nausea with the headache, according to Dr. woodward this is more effective presentation of complex migraine than a TIA. -- She says she has not been compliant with aspirin daily, we will reinforce the importance of keeping regular -- MR stroke protocol is ordered: Ruled out stroke -- Called patient's neurologist Dr. Morley and discussed the case with him. He is aware. He feels that this is more of a complex migraine based on the description I gave him. We may start her on migraine prophylaxis after further discussion. -- Lipid panel, A1c are ordered: Reviewed the results A1c 6.0, lipid panel is fairly unremarkable -- Carotid ultrasound ordered : Right carotid showed 50-69% stenosis, negative for critical stenosis. Dr. woodward feels that he can follow her as outpatient in order for the scans as needed. -- Echocardiogram is performed performed result is pending -- I have personally reviewed the EKG, CT chest x-ray, findings of CT scan and brain MRI as well as carotid ultrasound. -- Magnesium was prescribed for prophylaxis of headaches -- The day of discharge patient is not experiencing headaches, nausea, vomiting # Foramen ovale: As reported by the echo -- She is asked to follow up with cardiology. Literature suggests that there may be an association with the severe migraines and foramina ovale, though an echocardiogram to diagnosis migraine is not recommended -- She is encouraged to take her aspirin regularly # Neck pain, chronic: -- We will order a x-ray of cervical spine: I have reviewed the x-ray myself, showed severe degenerative disease and hypertrophy -- Conservative management with the help of PCP Assessment # nausea vomiting: Resolved -- She is currently on famotidine 20 mg IV twice a day for GI prophylaxis -- son says that she has GERD -- On medication omeprazole was increased to 20 mg twice a day Assessment # hypertension, chronic: -- Patient's home medications are given -- New medication chlorthalidone 12.5 mg added -- She is given potassium supplementation for discharge Assessment # hyperlipidemia, chronic: -- Atorvastatin 40 mg daily at bedtime Assessment # severe mitral regurgitation, chronic -- Cardiac echo showed no severe valvulopathy Disposition: The patient's symptoms to resolve, she can likely be discharged with home health and physical therapy on aspirin. She will follow-up with Dr. woodward and cardiology as well as her PCP. Exam Vital Signs (Last) Date Time Temp Pulse Resp B/P Pulse Ox O2 Delivery O2 Flow Rate FiO2 12/22/16 10:05 50 12/22/16 07:49 36.6 16 162/65 98 Room Air Exam Gen.: No acute distress HEENT: Right eyebrow is higher than the left slight mouth droop to the left (I do not know her baseline, family does not seem to recognize any change) Heart: 2+ systolic murmur with radiation to axilla and neck, regular rate and rhythm Lungs: Clear to auscultation or wheezes Abdomen soft nontender Extremities: Negative edema Neuro: CN II-XII grossly intact with the exception of facial droop Test 12/20/16 10:15 12/20/16 12:47 12/20/16 14:52 12/20/16 18:18 Prothrombin Time 10.2sec (8.1-12.5) Prothromb Time International Ratio 0.95ratio Hemoglobin A1c 6.0% (4.8-5.6) Magnesium Level 1.8mg/dL (1.6-2.6) Troponin T 0.010ug/L (0.0-0.011) Pro-B-Type Natriuretic Peptide 456.8pg/mL (0-738) Triglycerides Level 97mg/dL (0-149) Cholesterol Level 130mg/dL (100-199) LDL Cholesterol, Calculated 57.600mg/dL (0-99) VLDL Cholesterol 19.400mg/dL HDL Cholesterol 53mg/dL (>39) Cholesterol/HDL Ratio 2.45 (0.0-4.4) Salicylates Level 24.2ug/mL (30-250) Acetaminophen Level < 15.0ug/mL Rx (10-25) Urine Color Straw (YELLOW) Urine Appearance Hazy (CLEAR,HAZY) Urine pH 8.0 (5.0-8.0) Urine Specific [place] 1.015 (1.003-1.035) Urine Protein Negativemg/dL (NEG,TRACE) Urine Glucose (UA) 100mg/dL (NEGATIVE) Urine Ketones Negativemg/dL (NEGATIVE) Urine Occult Blood Negative (NEGATIVE) Urine Nitrite Negative (NEGATIVE) Urine Bilirubin Negative (NEGATIVE) Urine Urobilinogen Normalmg/dL (NORMAL) Urine Leukocyte Esterase Negative (NEGATIVE) Urine RBC 0-2/hpf (0-2) Urine WBC 0-5/hpf (0-5) Urine Epithelial Cells Occasional/hpf (NONE-MOD) Urine Crystals None seen (NONE SEEN) Urine Bacteria Moderate/hpf (NONE-FEW) Urine Hyaline Casts None/lpf (NONE) Urine Granular Casts None seen (NONE SEEN) Urine Waxy Casts None seen (NONE SEEN) Urine Red Blood Cell Casts None seen (NONE SEEN) Urine White Blood Cell Casts None seen (NONE SEEN) Urine Mucus None seen (None Seen) Urine Trichomonas None seen (NONE SEEN) Urine Yeast None (NONE SEEN) Urinalysis Comment None Urine Culture Reflexed Indicated Urine Opiates Screen Negative Urine Methadone Screen Negative Urine Barbiturates Screen Negative Urine Amphetamines Screen Negative Urine Benzodiazepines Screen Negative Urine Cocaine Metabolite Screen Negative Urine Cannabinoids Screen Negative Ammonia 27ug/dL (18-53) Test 12/21/16 05:30 12/22/16 05:00 12/22/16 06:50 White Blood Count 10.0th/mm3 (3.8-10.1) Red Blood Count 3.87mil/mm3 (3.90-5.20) Hemoglobin 12.0g/dL (12.0-15.6) Hematocrit 35.4% (35.0-46.0) Mean Corpuscular Volume 91.5fL (81-100) Mean Corpuscular Hemoglobin 31.0pg (27.0-35.0) Mean Corpuscular Hemoglobin Concent 33.9% (32.0-37.0) Red Cell Distribution Width 12.9% (12.3-15.4) Platelet Count 158bil/L (150-400) Neutrophils (%) (Auto) 68.9% (40-74) Lymphocytes (%) (Auto) 21.6% (14-46) Monocytes (%) (Auto) 9.1% (4-12) Eosinophils (%) (Auto) 0.2% (0-5) Basophils (%) (Auto) 0.1% (0-3) Total Bilirubin 0.6mg/dL (0.0-1.2) Aspartate Amino Transf (AST/SGOT) 18U/L (0-50) Alanine Aminotransferase (ALT/SGPT) 14U/L (0-32) Alkaline Phosphatase 134U/L (25-165) Total Protein 5.5g/dL (6.4-8.4) Albumin 3.5g/dL (3.4-5.0) Urine Random Creatinine 94mg/dL (15-278) Urine Random Sodium 32mEq/L Sodium Level 142mEq/L (134-144) Potassium Level 4.2mEq/L (3.5-5.2) Chloride Level 107mEq/L (97-108) Carbon Dioxide Level 24mmol/L (18-29) Blood Urea Nitrogen 26mg/dL (8-27) Creatinine 1.11mg/dL (0.57-1.00) Estimat Glomerular Filtration Rate 66mL/min (>59) Glucose Level 111mg/dL (60-99) Calcium Level 8.6mg/dL (8.5-10.1) Discharge Medications Discharge Medications Amlodipine (Norvasc) 5 Mg Tablet 10 MG PO DAILY (Reported) Aspirin Chew (Aspirin Chew) 81 Mg Tablet 324 MG PO DAILY Prescribed by: DAYAMI PACHECO MD Atenolol (Atenolol) 50 Mg Tablet 50 MG PO DAILY (Reported) Atorvastatin Calcium (Atorvastatin Calcium) 40 Mg Tablet 40 MG PO DAILY ( Reported) Chlorthalidone (Chlorthalidone) 25 Mg Tablet 12.5 MG PO DAILY Prescribed by: KAVITHA HERNANDEZ DO Cholecalciferol (Vitamin D3) (Vitamin D3) 5,000 Unit Capsule 5,000 UNIT PO DAILY (Reported) Estradiol (Estrace) 42.5 Gm Cream.appl 1 G VG WEEKLY (Reported) Magnesium Oxide (Mag-Oxide) 400 Mg Tablet 400 MG PO DAILY Prescribed by: KAVITHA HERNANDEZ DO Omeprazole (Omeprazole) 20 Mg Capsule. 20 MG PO BID Prescribed by: KAVITHA HERNANDEZ DO Potassium Chloride (Potassium Chloride) 8 Meq Capsule.er 8 MEQ PO DAILY TAKE WITH FOOD Prescribed by: KAVITHA HERNANDEZ DO Followup Plan Follow-up plan Please see Dr. Woodward in neurology clininc in 1-2 weeks Please see Cardiology with in [facility] system or of your choice in 2 weeks Please see PCP in 2 weeks F/U BMP prior to PCP visit Discharge Diet: Heart Healthy, Other (soft) Discharge Activity: Limited until seen by PCP (please avoid driving until seen by neurology) Patient Instructions Take aspirin regularly to avoid cardiovascular events. Take magnesium and continue atenolol for migraine prevention. Continue omeprazole and Ranitidine home meds for GERD You are started on new medication chlorthalidone for HTN. Take potassium supplementation as prescribed. Time spent 40 min Kavitha Hernandez DO Dec 22, 2016 11:21
== END 2016-12-22 12:59 | disposition home health service (06) ==
LOC: EDSEX 09:51 → EDBD 09:51 → SED 09:51 → EDUNIT# 09:51 → OSC 13:31
PROVIDERS: ADMIT Family Medicine; ATTEND Family Medicine
DX: G43.809 Other migraine, not intractable, without status migrainosus (principal); I10 Essential (primary) hypertension; N17.9 Acute kidney failure, unspecified; K21.9 Gastro-esophageal reflux disease without esophagitis; M54.2 Cervicalgia; G89.29 Other chronic pain; R11.2 Nausea with vomiting, unspecified; I34.0 Nonrheumatic mitral (valve) insufficiency; Q21.1 Atrial septal defect; E78.2 Mixed hyperlipidemia; Z86.73 Personal history of transient ischemic attack (TIA), and cerebral infarction without residual deficits
CPT/HCPCS: 36415; 70450; 70549; 70553; 71010; 72040; 80048; 80053; 80061; 81000; 81002; 82140; 82570; 83036; 83735; 83880; 84300; 84484; 85025; 85610; 87077; 87086; 87088; 87186; 92610; 93005; 93880; 96361; 96374; 96375; 96376; 97162; 99285; A9585; C8929; G0378; G0480; G8978; G8979; G8980; G8996; G8997; J1170; J1644; J2405; J3490; J7030